=== PATIENT | male | born 1995 | race Caucasian/White ===

== ENCOUNTER 2024-01-19 15:39 | Emergency (ER) | payer BC ==
[2024-01-19 15:57] VITALS: BP 114/60; PULSE 62; RESP 18; TEMP 98.2; BMI 26.9
[2024-01-19] MEDS ORDERED: RABIES IMMUNE GLOBULIN 300 UNITS/1 ML VIAL ONE (16:31)
[2024-01-19] MEDS ORDERED: RABIES VACCINE (PCEC)/PF 2.5 UNIT/VIAL IM ONE (16:31)
[2024-01-19] MEDS: RABIES VACCINE (PCEC)/PF 2.5 UNIT/VIAL IM ONE (16:52)
[2024-01-19] MEDS: RABIES IMMUNE GLOBULIN 300 UNITS/1 ML VIAL IM ONE (16:58)
== END 2024-01-19 17:11 | disposition home or self-care (01) ==
LOC: JERFT 15:39
PROC: 3E0234Z Introduction of Serum, Toxoid and Vaccine into Muscle, Percutaneous Approach (ICD-10-PCS; principal; 2024-01-19)
DX: Z20.3 Contact with and (suspected) exposure to rabies (principal)
CPT/HCPCS: 90375; 90675; 99284-25